=== PATIENT | female | born 1975 | race Caucasian/White ===

== ENCOUNTER 2017-02-16 08:59 | Emergency (ER) | payer OTHER | END 2017-02-16 11:45 | disposition home or self-care (01) | LOC: ER 08:59 | DX: R10.31 Right lower quadrant pain (principal); R10.32 Left lower quadrant pain; R11.0 Nausea; F41.9 Anxiety disorder, unspecified; F17.210 Nicotine dependence, cigarettes, uncomplicated; Z87.442 Personal history of urinary calculi; Z90.710 Acquired absence of both cervix and uterus; Z90.49 Acquired absence of other specified parts of digestive tract | CPT/HCPCS: 36415; 96374; 96375 ==

== ENCOUNTER → 2017-03-18 | Day surgery (SDC) | payer OTHER | END | disposition home or self-care (01) | LOC: SDC 12:18 | DX: N30.20 Other chronic cystitis without hematuria (principal); M19.90 Unspecified osteoarthritis, unspecified site; Z90.710 Acquired absence of both cervix and uterus; Z90.49 Acquired absence of other specified parts of digestive tract; Z79.899 Other long term (current) drug therapy; Z88.8 Allergy status to other drugs, medicaments and biological substances; Z88.1 Allergy status to other antibiotic agents; Z88.6 Allergy status to analgesic agent | CPT/HCPCS: C1758; J0696; J2704; J3370; J7050; Q9967 ==